=== PATIENT | female | born 2000 | race Caucasian/White ===

== ENCOUNTER 2023-05-20 04:22 | Emergency (ER) | payer MEDICAID, SELFPAY ==
[2023-05-20 04:28] VITALS: BP 163/116; PULSE 106; RESP 18; TEMP 36.8; O2SAT 100; BMI 41.9
[2023-05-20 04:55] LABS: Basophils # 0.1 10^3/uL (0.0-0.1); Basophils % 0.7 %; Eosinophils # 0.2 10^3/uL (0.0-0.8); Eosinophils % 1.9 %; Hematocrit 40.8 % (36-47); Lymphocytes # 3.6 10^3/uL (0.8-4.8); Lymphocytes % 29.4 %; Mean Corpuscular HGB Conc 31.9 g/dL (30-55); Mean Corpuscular Hemoglobin 27.4 pg (27-33); Mean Corpuscular Volume 85.9 fl (85-98); Monocytes # 0.5 10^3/uL (0.2-0.9); Monocytes % 4.4 %; Neutrophils # 7.75 10^3/uL (1.8-7.7); Neutrophils % 63.4 %; Nucleated Red Blood Cells % 0 %; Platelet Count 270 10^3/cmm (157-399); Red Blood Count 4.75 10^6/uL (3.85-5.65); Red Cell Distribution Width 14.8 % (12.1-15.1); White Blood Count 12.23 10^3/uL (3.29-11.43)
[2023-05-20 04:57] LABS: HCG Qualitative Urine. Negative (Negative)
[2023-05-20 05:03] LABS: Add Urine Culture? No; Add Urine Microscopic? YES; Bacteria Urine TRACE /hpf; Bilirubin Urine Neg (Negative); Blood Urine Trace (Negative); Glucose Urine UA Norm (Normal); Ketones Urine Negative (Negative); Leukocyte Esterase Urine Negative (Negative); Nitrate Urine Negative (Negative); Protein Urine Neg (Negative); RBC Urine 0-4 /hpf (0-2); Specific Gravity, Urine 1.005 (1.005-1.030); Squamous Epithelial Cell Urine 15-25 /hpf (0-5); Urine Appearance SL Hazy (CLEAR); Urine Color Colorless (Yellow); Urobilinogen Urine Neg (Negative); WBC Urine 0-4 /hpf (0-5); pH Urine 6.5 (5-7)
[2023-05-20 05:11] LABS: Alanine Aminotransferase 455 U/L (0-33); Albumin Level 4.3 g/dL (3.5-5.2); Alkaline Phosphatase 244 U/L (35-105); Anion Gap 17.8 (5-19); Aspartate Amino Transferase 242 U/L (0-32); Blood Urea Nitrogen 10 mg/dL (6-20); Calcium 9.4 mg/dL (8.5-10.5); Carbon Dioxide 21 mmol/L (22-29); Chloride 104 mmol/L (98-107); Creatinine Clr Calc Pharmacy 192.1339; Globulin 3.8 g/dL (1.3-4.6); Glucose 107 mg/dL (65-115); Osmolality Calculated 288 mOsm/kg (285-295); Potassium 3.8 mmol/L (3.5-5.1); Sodium 139 mmol/L (136-145); Total Bilirubin 0.4 mg/dL (0.15-1.2); Total Protein 8.1 g/dL (6.6-8.7)
--- NOTE | 2023-05-20 05:43 | ED_ITS ---
Documented by User: Samm Garcia MD 05/20/23 06:56 HPI - Back Pain/Injury 2 General: Chief Complaint: Back Pain/Injury Stated Complaint: ABD Rt Pain Back Pain Rt Time Seen by Provider: 05/20/23 04:32 History of Present Illness: 22-year-old female presents emergency de partment complaints of right upper back pain and right upper quadrant abdominal pain. She states it woke her from sleep this morning at approximately 1 AM. She states the pain was a sharp stabbing pain that radiated to her back. She states it was worse when she pushed on her right upper abdomen and also worse when she took a deep breath in. She does endorse associated nausea. She states this also happened 2 days ago and resolved on its own. She states she is unable to correlate eating or any other occurrences that could be causing her pain and discomfort. She states that on Thursday she did have significant acid reflux at that time she states she has never had acid reflux before. She denies shortness of breath dizziness or lightheaded feeling. She denies diarrhea or vomiting. Associated symptoms: Reports abdominal pain and nausea Review of Systems 2 General: Reports: 10 or more systems reviewed and unremarkable except in HPI and below GI: Reports: abdominal pain and nausea Musc: Reports: back pain [facility] ED 2 Female Reproductive History: Date of last menstrual period: 05/07/23 Physical Exam 2 Narrative: EXAM NARRATIVE: Constitutional: the patient appears well nourished and of normal development. Vital signs as documented. No acute distress at present. Alert and oriented-to person, place, time and situation. Head, eyes, ears, nose, mouth, throat: Normocephalic, atraumatic. Pupils-equal, round, reactive to light. No scleral icterus. Normal-appearing external ears. Normal appearing nasal turbinates, no drainage. No obvious oral lesions, posterior oropharynx without erythema or exudates. Neck: Supple, trachea is midline, no lymphadenopathy, no jugular venous distension, thyromegaly, or carotid bruits. Carotid upstrokes are brisk bilaterally. Lungs: clear to auscultation to all lung lang. Symmetrical rise and fall of chest, no obvious signs of increased work of breathing at present. Cardiac: Regular rate and rhythm, positive S1, S2. No murmurs, rubs or gallops that I can appreciate Abdomen: Soft, right upper quadrant tender to palpation, normal active bowel sounds to all quadrants. No palpable masses, no organomegaly and abdominal bruits. Extremities: 2+ pulses in the upper extremities that are equal bilaterally, 2+ pulses in the lower extremities that are equal bilaterally. Non-edematous. Moves all extremities well, sensation to all extremities are noted. Skin: Warm, dry, intact. Course 2 Vital Signs: Vital signs: Vital Signs Temperature 98.2 F 05/20/23 04:28 Pulse Rate 65 05/20/23 09:58 Respiratory Rate 18 05/20/23 04:28 Blood Pressure 138/96 05/20/23 09:58 Pulse Oximetry 98 05/20/23 09:58 Oxygen Delivery Me thod Room Air 05/20/23 06:27 MDM - Back Pain/Injury Medical Decision Making Physical exam completed document I did obtain a CBC and a CMP and she does have elevated white blood cells at 12.2, the CMP did demonstrate an AST of 242, ALT of 455, alkaline phosphatase 244 patient's total bilirubin is 0.4. Given the patient's physical exam findings I am concerned for acute cholecystitis. I did obtain a urinalysis that demonstrated trace blood. At present an ultrasound is pending of her right upper quadrant to evaluate for cholecystitis. Differential diagnosis includes acute cholecystitis, choledocholithiasis, fatty liver disease, UTI, gastroenteritis, I have discussed the patient's case with the on-coming physician <Dr. Jean-Baptiste > and they have assumed care of the patient. We have discussed the current lab/radiographic results that have been resulted and the pending tests. Medical Records I reviewed the patient's medical records. Labs I reviewed the patient's lab results. 05/20/23 04:41 05/20/23 04:41 Radiology Impressions Gallbladder Ultrasound 05/20/23 05:43 IMPRESSION: 1. Hyperechoic liver, which can be seen with fatty infiltration or hepatocellular disease. 2. Cholelithiasis without evidence of cholecystitis. Laboratory Results WBC 12.23 10^3/uL (3.29-11.43) H 05/20/23 04:41 RBC 4.75 10^6/uL (3.85-5.65) 05/20/23 04:41 Hgb 13.00 g/dL (11.27-16.99) 05/20/23 04:41 Hct 40.8 % (36-47) 05/20/23 04:41 MCV 85.9 fl (85-98) 05/20/23 04:41 MCH 27.4 pg (27-33) 05/20/23 04:41 MCHC 31.9 g/dL (30-55) 05/20/23 04:41 RDW 14.8 % (12.1-15.1) 05/20/23 04:41 Plt Count 270 10^3/cmm (157-399) 05/20/23 04:41 MPV 11.0 fL (7.4-10.4) H 05/20/23 04:41 Neut % (Auto) 63.4 % 05/20/23 04:41 Lymph % (Auto) 29.4 % 05/20/23 04:41 Sunflower % (Auto) 4.4 % 05/20/23 04:41 Eos % (Auto) 1.9 % 05/20/23 04:41 Baso % (Auto) 0.7 % 05/20/23 04:41 Neut # (Auto) 7.75 10^3/uL (1.8-7.7) H 05/20/23 04:41 Lymph # (Auto) 3.6 10^3/uL (0.8-4.8) 05/20/23 04:41 Sunflower # (Auto) 0.5 10^3/uL (0.2-0.9) 05/20/23 04:41 Eos # (Auto) 0.2 10^3/uL (0.0-0.8) 05/20/23 04:41 Baso # (Auto) 0.1 10^3/uL (0.0-0.1) 05/20/23 04:41 Nucleated RBC % (auto) 0 % 05/20/23 04:41 Nucleated RBCs # 0.0 /100WBC 05/20/23 04:41 Sodium 139 mmol/L (136-145) 05/20/23 04:41 Potassium 3.8 mmol/L (3.5-5.1) 05/20/23 04:41 Chloride 104 mmol/L (98-107) 05/20/23 04:41 Carbon Dioxide 21 mmol/L (22-29) L 05/20/23 04:41 Anion Gap 17.8 (5-19) 05/20/23 04:41 BUN 10 mg/dL (6-20) 05/20/23 04:41 Creatinine 0.6 mg/dL (0.5-0.9) 05/20/23 04:41 GFR Calculation 125.0 mL/min (90-130) 05/20/23 04:41 Glucose 107 mg/dL (65-115) 05/20/23 04:41 Calculated Osmolality 288 mOsm/kg (285-295) 05/20/23 04:41 Calcium 9.4 mg/dL (8.5-10.5) 05/20/23 04:41 Total Bilirubin 0.4 mg/dL (0.15-1.2) 05/20/23 04:41 AST 242 U/L (0-32) H 05/20/23 04:41 ALT 455 U/L (0-33) H 05/20/23 04:41 Alkaline Phosphatase 244 U/L (35-105) H 05/20/23 04:41 Total Protein 8.1 g/dL (6.6-8.7) 05/20/23 04:41 Albumin 4.3 g/dL (3.5-5.2) 05/20/23 04:41 Globulin 3.8 g/dL (1.3-4.6) 05/20/23 04:41 HCG, Qual Negative (Negative) 05/20/23 04:41 Urine Color Colorless (Yellow) 05/20/23 04:41 Urine Appearance Sl hazy (CLEAR) A 05/20/23 04:41 Urine pH 6.5 (5-7) 05/20/23 04:41 Ur Specific [place] 1.005 (1.005-1.030) 05/20/23 04:41 Urine Protein Neg (Negative) 05/20/23 04:41 Urine Glucose (UA) Norm (Normal) 05/20/23 04:41 Urine Ketones Negative (Negative) 05/20/23 04:41 Urine Blood Trace (Negative) H 05/20/23 04:41 Urine Nitrate Negative (Negative) 05/20/23 04:41 Urine Bilirubin Neg (Negative) 05/20/23 04:41 Urine Urobilinogen Neg mg/dL (Negative) 05/20/23 04:41 Ur Leukocyte Esterase Negative (Negative) 05/20/23 04:41 Urine RBC 0-4 /hpf (0-2) H 05/20/23 04:41 Urine WBC 0-4 /hpf (0-5) H 05/20/23 04:41 Ur Squamous Epith Cells 15-25 /hpf (0-5) H 05/20/23 04:41 Amorphous Sediment Not Reportable 05/20/23 04:41 Urine Bacteria Trace /hpf (NONE) 05/20/23 04:41 All radiology interpretation(s) finalized by discharge Discharge Plan Discharge Patient Disposition: Home Clinical Impression: Biliary colic, Cholelithiasis Condition: Stable Prescriptions: New hydrocodone-acetaminophen 5-325 mg tablet 1 tab PO Q6H PRN (Reason: pain) Qty: 20 0RF amoxicillin-pot clavulanate 875-125 mg tablet 1 tab PO BID Qty: 20 0RF promethazine 25 mg tablet 25 mg PO Q6H PRN (Reason: nausea and vomiting) Qty: 20 0RF No Action ibuprofen 200 mg Capsule 400 mg PO Q6H PRN (Reason: Pain) Discharge Orders: Discharge ED (Routine); Ordered 05/20/23 Ordered By: Quang Jean-Baptiste Referrals: Susan Winters DO [Primary Care Provider] - Patient Instructions: Biliary Colic (ED), Gallstones (ED), Abdominal Pain (ED), Opioid Safety, Pain Management Activity Restrictions/Additional Instructions: Thank you for choosing [facility] for your healthcare needs today. Please realize this is an emergency room and that we are providing you with a medical screening exam and this may not be complete and all inclusive of all the testing and or work up that you may need to determine your ailment or severity of your illness. It is very important that you follow up as instructed or that you return to the Emergency Department should you have concerns or if your condition changes or worsens in any way. You are seen today for abdominal pain. Your symptoms are caused by biliary colic. I reviewed your case with the on-call surgeon we recommend starting oral antibiotics, pain medications and nausea medications as needed. Case management will make arrangements for you to have follow-up with Dr. Cruz to discuss further treatment options. Sign Out Sign Out Data: Patient Sign Out occurred on 05/20/23 at 06:53. Patient's care was discussed, and care was transferred from Samm Garcia MD to Quang Jean-Baptiste DO. Coding Level of Care Code ED Power Sewing Machine Operator for Chg Fwd Documented by User: Quang Jean-Baptiste DO 05/20/23 11:43 HPI - Back Pain/Injury 2 General: Chief Complaint: Back Pain/Injury Stated Complaint: ABD Rt Pain Back Pain Rt Time Seen by Provider: 05/20/23 04:32 Course 2 Vital Signs: Vital signs: Vital Signs Temperature 98.2 F 05/20/23 04:28 Pulse Rate 65 05/20/23 09:58 Respiratory Rate 18 05/20/23 04:28 Blood Pressure 138/96 05/20/23 09:58 Pulse Oximetry 98 05/20/23 09:58 Oxygen Delivery Me thod Room Air 05/20/23 06:27 MDM - Back Pain/Injury Medical Decision Making Physical exam completed document I did obtain a CBC and a CMP and she does have elevated white blood cells at 12.2, the CMP did demonstrate an AST of 242, ALT of 455, alkaline phosphatase 244 patient's total bilirubin is 0.4. Given the patient's physical exam findings I am concerned for acute cholecystitis. I did obtain a urinalysis that demonstrated trace blood. At present an ultrasound is pending of her right upper quadrant to evaluate for cholecystitis. Differential diagnosis includes acute cholecystitis, choledocholithiasis, fatty liver disease, UTI, gastroenteritis, I have discussed the patient's case with the on-coming physician <Dr. Jean-Baptiste > and they have assumed care of the patient. We have discussed the current lab/radiographic results that have been resulted and the pending tests. Care assumed at change of shift the patient does not have sign of obstruction of laboratory test show marked elevation of alk phos and AST and ALT however T. bili is not elevated. Ultrasound gallbladder does not show radiographic findings of acute cholecystitis symptoms are better discussed with Dr. Cruz reviewed findings with the patient as well. Discussed treatment options to the patient and offered observation with IV hydration and pain control patient states she was feeling better after long discussion ultimately she decided to treat as an outpatient. Dr. Vazquez would recommend if she opted for that route started on Augmentin 875 twice daily I gave her antiemetics and pain medications reviewed diet adjustments she can make that can minimize recurrence of biliary colic. We will set her up to follow-up with Dr. Cruz in his office to pursue treatment options for definitive care Labs 05/20/23 04:41 05/20/23 04:41 Radiology Impressions Gallbladder Ultrasound 05/20/23 05:43 IMPRESSION: 1. Hyperechoic liver, which can be seen with fatty infiltration or hepatocellular disease. 2. Cholelithiasis without evidence of cholecystitis. Laboratory Results WBC 12.23 10^3/uL (3.29-11.43) H 05/20/23 04:41 RBC 4.75 10^6/uL (3.85-5.65) 05/20/23 04:41 Hgb 13.00 g/dL (11.27-16.99) 05/20/23 04:41 Hct 40.8 % (36-47) 05/20/23 04:41 MCV 85.9 fl (85-98) 05/20/23 04:41 MCH 27.4 pg (27-33) 05/20/23 04:41 MCHC 31.9 g/dL (30-55) 05/20/23 04:41 RDW 14.8 % (12.1-15.1) 05/20/23 04:41 Plt Count 270 10^3/cmm (157-399) 05/20/23 04:41 MPV 11.0 fL (7.4-10.4) H 05/20/23 04:41 Neut % (Auto) 63.4 % 05/20/23 04:41 Lymph % (Auto) 29.4 % 05/20/23 04:41 Sunflower % (Auto) 4.4 % 05/20/23 04:41 Eos % (Auto) 1.9 % 05/20/23 04:41 Baso % (Auto) 0.7 % 05/20/23 04:41 Neut # (Auto) 7.75 10^3/uL (1.8-7.7) H 05/20/23 04:41 Lymph # (Auto) 3.6 10^3/uL (0.8-4.8) 05/20/23 04:41 Sunflower # (Auto) 0.5 10^3/uL (0.2-0.9) 05/20/23 04:41 Eos # (Auto) 0.2 10^3/uL (0.0-0.8) 05/20/23 04:41 Baso # (Auto) 0.1 10^3/uL (0.0-0.1) 05/20/23 04:41 Nucleated RBC % (auto) 0 % 05/20/23 04:41 Nucleated RBCs # 0.0 /100WBC 05/20/23 04:41 Sodium 139 mmol/L (136-145) 05/20/23 04:41 Potassium 3.8 mmol/L (3.5-5.1) 05/20/23 04:41 Chloride 104 mmol/L (98-107) 05/20/23 04:41 Carbon Dioxide 21 mmol/L (22-29) L 05/20/23 04:41 Anion Gap 17.8 (5-19) 05/20/23 04:41 BUN 10 mg/dL (6-20) 05/20/23 04:41 Creatinine 0.6 mg/dL (0.5-0.9) 05/20/23 04:41 GFR Calculation 125.0 mL/min (90-130) 05/20/23 04:41 Glucose 107 mg/dL (65-115) 05/20/23 04:41 Calculated Osmolality 288 mOsm/kg (285-295) 05/20/23 04:41 Calcium 9.4 mg/dL (8.5-10.5) 05/20/23 04:41 Total Bilirubin 0.4 mg/dL (0.15-1.2) 05/20/23 04:41 AST 242 U/L (0-32) H 05/20/23 04:41 ALT 455 U/L (0-33) H 05/20/23 04:41 Alkaline Phosphatase 244 U/L (35-105) H 05/20/23 04:41 Total Protein 8.1 g/dL (6.6-8.7) 05/20/23 04:41 Albumin 4.3 g/dL (3.5-5.2) 05/20/23 04:41 Globulin 3.8 g/dL (1.3-4.6) 05/20/23 04:41 HCG, Qual Negative (Negative) 05/20/23 04:41 Urine Color Colorless (Yellow) 05/20/23 04:41 Urine Appearance Sl hazy (CLEAR) A 05/20/23 04:41 Urine pH 6.5 (5-7) 05/20/23 04:41 Ur Specific [place] 1.005 (1.005-1.030) 05/20/23 04:41 Urine Protein Neg (Negative) 05/20/23 04:41 Urine Glucose (UA) Norm (Normal) 05/20/23 04:41 Urine Ketones Negative (Negative) 05/20/23 04:41 Urine Blood Trace (Negative) H 05/20/23 04:41 Urine Nitrate Negative (Negative) 05/20/23 04:41 Urine Bilirubin Neg (Negative) 05/20/23 04:41 Urine Urobilinogen Neg mg/dL (Negative) 05/20/23 04:41 Ur Leukocyte Esterase Negative (Negative) 05/20/23 04:41 Urine RBC 0-4 /hpf (0-2) H 05/20/23 04:41 Urine WBC 0-4 /hpf (0-5) H 05/20/23 04:41 Ur Squamous Epith Cells 15-25 /hpf (0-5) H 05/20/23 04:41 Amorphous Sediment Not Reportable 05/20/23 04:41 Urine Bacteria Trace /hpf (NONE) 05/20/23 04:41 Discharge Plan Discharge Patient Disposition: Home Clinical Impression: Biliary colic, Cholelithiasis Condition: Stable Prescriptions: New hydrocodone-acetaminophen 5-325 mg tablet 1 tab PO Q6H PRN (Reason: pain) Qty: 20 0RF amoxicillin-pot clavulanate 875-125 mg tablet 1 tab PO BID Qty: 20 0RF promethazine 25 mg tablet 25 mg PO Q6H PRN (Reason: nausea and vomiting) Qty: 20 0RF No Action ibuprofen 200 mg Capsule 400 mg PO Q6H PRN (Reason: Pain) Discharge Orders: Discharge ED (Routine); Ordered 05/20/23 Ordered By: Quang Jean-Baptiste Referrals: Susan Winters DO [Primary Care Provider] - Patient Instructions: Biliary Colic (ED), Gallstones (ED), Abdominal Pain (ED), Opioid Safety, Pain Management Activity Restrictions/Additional Instructions: Thank you for choosing [facility] for your healthcare needs today. Please realize this is an emergency room and that we are providing you with a medical screening exam and this may not be complete and all inclusive of all the testing and or work up that you may need to determine your ailment or severity of your illness. It is very important that you follow up as instructed or that you return to the Emergency Department should you have concerns or if your condition changes or worsens in any way. You are seen today for abdominal pain. Your symptoms are caused by biliary colic. I reviewed your case with the on-call surgeon we recommend starting oral antibiotics, pain medications and nausea medications as needed. Case management will make arrangements for you to have follow-up with Dr. Cruz to discuss further treatment options. Sign Out Sign Out Data: Patient Sign Out occurred on 05/20/23 at 06:53. Patient's care was discussed, and care was transferred from Samm Garcia MD to Quang Jean-Baptiste DO. Coding Level of Care Code ED Power Sewing Machine Operator for Renaldo Yu
--- NOTE | 2023-05-20 05:43 | USR_ITS ---
PROCEDURE INFORMATION: Exam: US Abdomen, Limited; Right Upper Quadrant Exam date and time: 05/20/2023 5:59 AM Age: 22 years old Clinical indication: Abdominal pain; Acute; Additional info: Ruq abd pain TECHNIQUE: Imaging protocol: Real time ultrasound of the abdomen with image documentation. Limited exam focused on the right upper quadrant. COMPARISON: No relevant prior studies available. FINDINGS: Liver: Liver is diffusely increased in echogenicity, most commonly seen in hepatic steatosis, though other forms of parenchymal liver disease could have a similar appearance. This limits evaluation for subtle isoechoic masses but no masses are seen. Patent main portal vein with normal direction of flow. Gallbladder: Gallstones and sludge noted. No gallbladder wall thickening. No pericholecystic fluid. Negative sonographic Sheldon's sign. Biliary ducts: Normal. No stones. No dilation. Pancreas: Visualized pancreas is unremarkable. Right kidney: Normal. No mass. No hydronephrosis. US/US gall bladder [id number] IMPRESSION: 1. Hyperechoic liver, which can be seen with fatty infiltration or hepatocellular disease. 2. Cholelithiasis without evidence of cholecystitis.
[2023-05-20 06:27] VITALS: BP 152/88; PULSE 89; O2SAT 100
[2023-05-20 07:35] VITALS: PULSE 96; O2SAT 97
[2023-05-20 09:57] VITALS: BP 138/96; PULSE 65; O2SAT 98
[2023-05-20 09:58] VITALS: BP 138/96; PULSE 65; O2SAT 98
--- NOTE | 2023-05-21 23:22 | DCPLANNER ---
Message sent to General Surgery
== END 2023-05-20 10:05 | disposition home or self-care (01) ==
PROVIDERS: Internal Medicine; Emergency Provider Family Medicine; PCP Family Medicine
DX: K80.20 Calculus of gallbladder without cholecystitis without obstruction (principal)
CPT/HCPCS: 76705; 80053; 81001; 81025; 85025; 99284

== ENCOUNTER 2023-06-11 06:50 | Day surgery (SDC) | payer MEDICAID, SELFPAY ==
[2023-06-11] VITALS (11 sets, daily range): BP systolic 125–196; BP diastolic 72–135; PULSE 55–107; RESP 16–20; TEMP 36.1–36.4; O2SAT 94–99
--- NOTE | 2023-06-11 07:08 | W.PM.OPSUD ---
Surgery/Procedure H&P Update DATE OF PROCEDURE: June 11, 2023 DATE H&P PERFORMED: 06/01/23 H&P UPDATE INFORMATION: I have reviewed H&P completed within last 30 days, I have examined patient prior to procedure and No changes to prior documentation PLANNED PROCEDURE: Operation Date: 06/11/23 08:45 Proposed Procedures p Laparoscopic Cholecystectomy 96554, K80.20(Not Applicable) - Vinayak Cruz,
--- NOTE | 2023-06-11 07:28 | ANES.PREANE2 ---
Pre-Anesthetic Assessment Height/Weight: Height 1.68 m Weight 136.078 kg Temp Pulse Resp BP Pulse Ox O2 Del Method 97.3 F L 107 H 18 196/135 98 Room Air 06/11/23 07:09 06/11/23 07:09 06/11/23 07:09 06/11/23 07:09 06/11/23 07:09 06/11/23 07:09 Operation Date: 06/11/23 08:45 Proposed Procedures p Laparoscopic Cholecystectomy 23541, K80.20(Not Applicable) - Vinayak Cruz DO Last intake: Intake Last Liquid Date 06/10/23 Last Liquid Time 22:30 Last Solid Date 06/10/23 Last Solid Time 18:00 Social No alcohol and No tobacco Exam alert, oriented x 3, clear to auscultation bilaterally and regular rate & rhythm Airway Submandibular: within normal limits Cervical ROM: Other (Limited) Mallampati: Class II History/ROS No significant history except as noted Metabolic Morbid Obesity Anesthetic Plan ASA status: 3 Anesthesia: General Medications/Allergies Home Medications Medication Instructions Recorded Confirmed Last Taken Type hydrocodone 5 mg-acetaminophen 325 1 tab PO Q6H PRN pain #20 tabs 05/20/23 06/11/23 Unknown Rx mg tablet ibuprofen 200 mg capsule 400 mg PO Q6H PRN Pain 05/20/23 06/11/23 Unknown History promethazine 25 mg tablet 25 mg PO Q6H PRN nausea and 05/20/23 06/11/23 Unknown Rx vomiting #20 tabs Allergies Allergy/AdvReac Type Severity Reaction Status Date / Time No Known Allergies Allergy Verified 06/10/23 12:34 PFSH Anesthesia Female Reproductive History Date of last menstrual period: 05/07/23 Data Anesthesia Cardiac Studies: No Data to Display
[2023-06-11] MEDS: sodium chloride 0.9% 1,000 ML 30 ML IV (07:42)
[2023-06-11 07:45] LABS: OR HCG Qualitative Urine Negative (Negative)
[2023-06-11] MEDS: ceFAZolin 3,000 MG in sodium chloride 0.9% (plus) 100 ML 200 MG IV (08:09)
[2023-06-11] MEDS: lidocaine-epi 1% 20 mL INJ 10 ML INJECTION (08:48)
--- NOTE | 2023-06-11 09:17 | P.OP_ITS ---
Operative Report Date of procedure: June 11, 2023 Pre-op diagnosis: Symptomatic cholelithiasis Hepatocellular disease Post-op diagnosis: same Procedure done: Laparoscopic cholecystectomy Laparoscopic wedge liver biopsy Specimens removed/disposition: Gallbladder Wedge liver biopsy Surgeon: Vinayak Cruz DO Anesthesia: General and Local Estimated blood loss (mL): 5 Complications: None apparent Brief History: This very pleasant 22-year-old female who presented to the office with symptomatic cholelithiasis. Ultrasound also diagnosed hepatocellular disease. Laparoscopic cholecystectomy and laparoscopic wedge liver biopsy were indicated. The risk and benefits were explained and documented. Procedure: Patient was wheeled into the operative room and placed on the OR table in a supine position. Abdomen was inspected prepped and draped in usual sterile fashion. Time-out was performed and all present were in agreement. A 15 blade scalp was used to make a stab incision in the left upper quadrant and intra- abdominal insufflation was achieved using a Veress needle. After localizing the tissue incisions were made and a 5 millimeter trocar was placed into the umbilicus as well as 2 in the right upper quadrant. A 12 millimeter trocar was placed in the epigastrium. Gallbladder was grasped and elevated. The triangle of Calot was carefully dissected using blunt dissection and electrocautery until the triangle of Calot clearly identified. The cystic duct was clipped proximally and double clipped distally. The duct was then ligated proximally. The cystic artery was doubly clipped and ligated. The gallbladder was then removed from the liver bed using electrocautery. The gallbladder was removed f rom the abdomen using an Endo-Catch bag through the epigastric incision. The edge of the liver was then grasped with a [place] and Metzenbaum scissors were used to wedge out a wedge liver biopsy. The wedge liver biopsy was then placed into an Endo Catch bag and removed via the 12 mm trocar. The edge of the liver was then cauterized with electrocautery. The liver bed was inspected and no bleeding was seen. The abdomen was irrigated and suctioned. All ports removed. Skin was washed and dried. Incisions were closed with 4-0 Monocryl in a subcuticular interrupted fashion. Skin glue was applied. Patient tolerated the procedure well.
[2023-06-11] MEDS: ondansetron 2 mg/ML SDV 2 mL 4 MG IVP (09:36)
[2023-06-11] MEDS: diphenhydrAMINE 50 mg/mL SDV 1mL 12.5 MG IVP (10:02)
--- NOTE | 2023-06-11 11:10 | ANE.PACU2 ---
Inpatient post-anesthesia follow up: Vital signs: Temperature 97.6 F Pulse Rate 55 Respiratory Rate 16 Blood Pressure 125/85 Pulse Oximetry 94 Oxygen Delivery Me thod Room Air Oxygen Flow Rate 6 Fraction of Inspir ed Oxygen Hydration adequate: Yes Nausea and vomiting: No Pain level: 4 Mental status: Baseline
== END 2023-06-11 10:48 | disposition home or self-care (01) ==
PROVIDERS: Anesthesiology; PCP Family Medicine; Visit Provider Surgery
PROC: 0FT44ZZ Resection of Gallbladder, Percutaneous Endoscopic Approach (ICD-10-PCS; CPT 47562; principal; 2023-06-11 08:45)
PROC: 0FB04ZX Excision of Liver, Percutaneous Endoscopic Approach, Diagnostic (ICD-10-PCS; CPT 47379; 2023-06-11 08:45)
DX: K80.10 Calculus of gallbladder with chronic cholecystitis without obstruction (principal); K76.9 Liver disease, unspecified; E66.01 Morbid (severe) obesity due to excess calories; Z68.42 Body mass index [BMI] 45.0-49.9, adult
CPT/HCPCS: 47379; 47562; 81025; 88304; 88307; J0690; J1100; J1170; J1200; J2405; J2704; J2710; J3010; J3490; J7030

== ENCOUNTER 2023-06-12 16:32 | Emergency (ER) | payer MEDICAID, SELFPAY ==
[2023-06-12 16:37] VITALS: BP 139/90; PULSE 75; RESP 16; TEMP 36.6; O2SAT 98; BMI 53.2
--- NOTE | 2023-06-12 16:42 | ECG_ITS ---
Test Date: 2023-06-12 Pat Name: Sancho Andrade Department: Room: Gender: Female Glass Melt Operator: : [id number] Requested By: Quang Alcaraz Order Number: [id number] Krys MD: Jv Winston M.D. Measurements Intervals [place] Rate: 75 P: 34 WA: 156 QRS: 8 QRSD: 102 T: 0 QT: 379 QTc: 424 Interpretive Statements SINUS RHYTHM WITH SINUS ARRHYTHMIA MODERATE VOLTAGE CRITERIA FOR LVH, CONSIDER NORMAL VARIANT [MEETS CRITERIA IN ONE OF: R(aVL), S(V1), R(V5), R(V5/V6)+S(V1)] NONSPECIFIC T-WAVE ABNORMALITY No previous ECG available for comparison Electronically Signed On 06-14-2023 12:38:58 CDT by Jv Winston M.D. [id number] f
--- NOTE | 2023-06-12 17:04 | XRR_ITS ---
PROCEDURE INFORMATION: Exam: XR Abdomen Exam date and time: 06/12/2023 6:02 PM Age: 22 years old Clinical indication: Abdominal pain; Patient HX: Gallbladder removed yesterday; Additional info: Post op abd pain TECHNIQUE: Imaging protocol: Radiologic exam of the abdomen. Views: 2 Views. Upright and supine views. COMPARISON: US gall bladder [id number] 05/20/2023 5:59 AM FINDINGS: Gastrointestinal tract: Moderate gas distension of the transverse colon and splenic flexure without obvious wall thickening. Moderate colonic stool retention. No obvious pneumatosis or bowel wall thickening or small bowel dilatation. Intraperitoneal space: Trace subdiaphragmatic air likely expected due to recent reported cholecystectomy. Cholecystectomy clips present. Bones/joints: Unremarkable for age. XR/XR acute abdomen series [id number] IMPRESSION: 1. Moderate gas distension of the colon suggestive of ileus. Moderate colonic stool retention. 2. Trace free intraperitoneal air as expected given recent surgery.
[2023-06-12 17:14] VITALS: RESP 15; O2SAT 98
[2023-06-12] MEDS: morphine 4 mg/mL SDV 1 mL IVP (17:14)
[2023-06-12] MEDS: ondansetron 2 mg/ML SDV 2 mL 4 MG IVP (17:14)
--- NOTE | 2023-06-12 17:14 | ED_ITS ---
HPI - Chest Pain 2 General: Chief Complaint: Chest Pain Stated Complaint: chest and abd pain post surgery Time Seen by Provider: 06/12/23 17:04 Source: patient Mode of arrival: ambulatory History of Present Illness: 22-year-old female presents emergency ro om with complaint of chest pain. She is postop day 1 status post laparoscopic cholecystectomy with liver biopsy. She is complaining of upper abdominal pain radiating to her chest and into her shoulder blades. She had some nausea and vomiting associated with this as well no known history of coronary artery disease no hematemesis or coffee-ground emesis. MD complaint: chest pain Timing of current episode: episodic Prior episodes: Yes Onset: during rest Pain location: epigastric Pain radiation: back and neck Severity: severe Quality: sharp Relieving factors: nothing Exacerbating factors: nothing Associated symptoms: Reports nausea and vomiting; Deny abdominal pain, diaphoresis, dyspnea, fever(s), leg edema, palpitations, sense of impending doom or syncope Treatment prior to arrival: none Review of Systems 2 Const: Denies: fever(s), chills or diaphoresis Card: Denies: chest pain, palpitations or syncope Resp: Denies: dyspnea GI: Reports: nausea and vomiting; Denies: abdominal pain : Denies: dysuria, urinary frequency or urinary urgency Musc: Denies: neck pain or back pain Skin/Breast: Denies: rash Physical Exam 2 Const: GENERAL APPEARANCE: cooperative and comfortable O RIENTATION/CONSCIOUSNESS: Yes awake, Yes oriented to person, Yes oriented to place and Yes oriented to time HENMT: COMMON NORMALS: normocephalic, atraumatic and hearing grossly normal bilaterally HEAD & SCALP: normocephalic and atraumatic Resp: COMMON NORMALS: normal respiratory effort, No retractions, No use of accessory muscles and clear to auscultation bilaterally AUSCULTATION: clear to auscultation bilaterally Cardio: COMMON NORMALS: regular rate, regular rhythm and No murmurs present (Cardio) RATE: regular rate RHYTHM: regular rhythm GI: COMMON NORMALS: No hepatosplenomegaly present AUSCULTATION: Yes normoactive bowel sounds PALPATION: Yes Tenderness to palpation present (GI) (Mild diffuse tenderness), No Guarding due to palpation present (GI) and Yes No hepatosplenomegaly present OTHER: Bowel sounds positive no acute abdomen on exam or on repeat exam Extremity: COMMON NORMALS: normal to inspection, capillary refill normal, no clubbing, cyanosis or edema, no calf tenderness and no pedal edema Neuro: SENSORIUM/ORIENTATION: Yes oriented to person, Yes oriented to place and Yes oriented to time Skin: COMMON NORMALS: no rashes or lesions noted GENERAL SKIN EXAM: no rashes or lesions noted Course 2 Vital Signs: Vital signs: Vital Signs Temperature 97.9 F 06/12/23 16:37 Pulse Rate 75 06/12/23 16:37 Respiratory Rate 15 06/12/23 17:14 Blood Pressure 139/90 06/12/23 16:37 Pulse Oximetry 98 06/12/23 17:14 Oxygen Delivery Me thod Room Air 06/12/23 16:37 MDM - Chest Pain Medical Decision Making Small amount of air underneath the diaphragm on the right side. Suspect this is due to her surgery yesterday. She does not have an acute abdomen there is only mild leukocytosis. Liver enzymes elevated bilirubin is normal given her biopsy yesterday this is not unexpected. Repeat abdominal exam benign. Will discharge patient home continue pain medications given promethazine to use as needed clear liquid diet follow-up as needed. if has any worsening or change symptoms return to the emergency room or follow-up with her surgeon. Medical Records I reviewed the patient's medical records. Lab Data I reviewed the patient's lab results. 06/12/23 17:20 06/12/23 17:20 Laboratory Results WBC 14.72 10^3/uL (3.29-11.43) H 06/12/23 17:20 RBC 4.71 10^6/uL (3.85-5.65) 06/12/23 17:20 Hgb 13.20 g/dL (11.27-16.99) 06/12/23 17:20 Hct 40.7 % (36-47) 06/12/23 17:20 MCV 86.4 fl (85-98) 06/12/23 17:20 MCH 28.0 pg (27-33) 06/12/23 17:20 MCHC 32.4 g/dL (30-55) 06/12/23 17:20 RDW 14.6 % (12.1-15.1) 06/12/23 17:20 Plt Count 257 10^3/cmm (157-399) 06/12/23 17:20 MPV 11.3 fL (7.4-10.4) H 06/12/23 17:20 Neut % (Auto) 74.4 % 06/12/23 17:20 Lymph % (Auto) 17.7 % 06/12/23 17:20 Pierce % (Auto) 6.6 % 06/12/23 17:20 Eos % (Auto) 0.4 % 06/12/23 17:20 Baso % (Auto) 0.6 % 06/12/23 17:20 Neut # (Auto) 10.95 10^3/uL (1.8-7.7) H 06/12/23 17:20 Lymph # (Auto) 2.6 10^3/uL (0.8-4.8) 06/12/23 17:20 Pierce # (Auto) 1.0 10^3/uL (0.2-0.9) H 06/12/23 17:20 Eos # (Auto) 0.1 10^3/uL (0.0-0.8) 06/12/23 17:20 Baso # (Auto) 0.1 10^3/uL (0.0-0.1) 06/12/23 17:20 Nucleated RBC % (auto) 0 % 06/12/23 17:20 Nucleated RBCs # 0.0 /100WBC 06/12/23 17:20 Sodium 142 mmol/L (136-145) 06/12/23 17:20 Potassium 3.5 mmol/L (3.5-5.1) 06/12/23 17:20 Chloride 103 mmol/L (98-107) 06/12/23 17:20 Carbon Dioxide 29 mmol/L (22-29) 06/12/23 17:20 Anion Gap 13.5 (5-19) 06/12/23 17:20 BUN 8 mg/dL (6-20) 06/12/23 17:20 Creatinine 0.7 mg/dL (0.5-0.9) 06/12/23 17:20 GFR Calculation 104.6 mL/min (90-130) 06/12/23 17:20 Glucose 122 mg/dL (65-115) H 06/12/23 17:20 Calculated Osmolality 294 mOsm/kg (285-295) 06/12/23 17:20 Calcium 8.9 mg/dL (8.5-10.5) 06/12/23 17:20 Total Bilirubin 0.9 mg/dL (0.15-1.2) 06/12/23 17:20 AST 574 U/L (0-32) H 06/12/23 17:20 ALT 678 U/L (0-33) H 06/12/23 17:20 Alkaline Phosphatase 203 U/L (35-105) H 06/12/23 17:20 Total Protein 7.9 g/dL (6.6-8.7) 06/12/23 17:20 Albumin 4.2 g/dL (3.5-5.2) 06/12/23 17:20 Globulin 3.7 g/dL (1.3-4.6) 06/12/23 17:20 All radiology interpretation(s) finalized by discharge Discharge Plan Discharge Patient Disposition: Home Clinical Impression: Postoperative abdominal pain Condition: Stable Prescriptions: New promethazine 25 mg tablet 25 mg PO Q6H PRN (Reason: nausea and vomiting) Qty: 20 0RF No Action ibuprofen 200 mg Capsule 400 mg PO Q6H PRN (Reason: Pain) Hold Instructions: Resume on 06/13/23. hydrocodone-acetaminophen 5-325 mg tablet 1 tab PO Q6H PRN (Reason: pain) Qty: 20 0RF Hold Instructions: Resume on 06/16/23. promethazine 25 mg tablet 25 mg PO Q6H PRN (Reason: nausea and vomiting) Qty: 20 0RF Colace 100 mg capsule 100 mg PO BID Qty: 14 0RF hydrocodone-acetaminophen 7.5-325 mg tablet 1 tab PO Q6H PRN (Reason: pain) Qty: 20 0RF Discharge Orders: Discharge ED (Routine); Ordered 06/12/23 Ordered By: Quang Jean-Baptiste Referrals: Susan Winters, [Primary Care Provider] - Patient Instructions: Abdominal Pain (ED), Opioid Safety, Pain Management Activity Restrictions/Additional Instructions: Thank you for choosing [facility] for your healthcare needs today. Please realize this is an emergency room and that we are providing you with a medical screening exam and this may not be complete and all inclusive of all the testing and or work up that you may need to determine your ailment or severity of your illness. It is very important that you follow up as instructed or that you return to the Emergency Department should you have concerns or if your condition changes or worsens in any way. You were seen today for abdominal pain after your laparoscopic cholecystectomy. The pain is likely caused by air that is accumulated from the procedure underneath your diaphragm. This does happen sometimes and can cause pretty significant pain usual pain medications regularly. Also gave you another prescription for meds for nausea and vomiting. Clear liquid diet today and tomorrow then advance as tolerated. Coding Level of Care Code ED Parole Board Member for Renaldo Yu
[2023-06-12] MEDS: sodium chloride 0.9% 1,000 ML 999 ML IV (17:17)
[2023-06-12 17:29] LABS: Basophils # 0.1 10^3/uL (0.0-0.1); Basophils % 0.6 %; Eosinophils # 0.1 10^3/uL (0.0-0.8); Eosinophils % 0.4 %; Hematocrit 40.7 % (36-47); Lymphocytes # 2.6 10^3/uL (0.8-4.8); Lymphocytes % 17.7 %; Mean Corpuscular HGB Conc 32.4 g/dL (30-55); Mean Corpuscular Volume 86.4 fl (85-98); Mean Platelet Volume 11.3 fL (7.4-10.4); Monocytes % 6.6 %; Neutrophils # 10.95 10^3/uL (1.8-7.7); Neutrophils % 74.4 %; Nucleated Red Blood Cells % 0 %; Platelet Count 257 10^3/cmm (157-399); Red Blood Count 4.71 10^6/uL (3.85-5.65); Red Cell Distribution Width 14.6 % (12.1-15.1); White Blood Count 14.72 10^3/uL (3.29-11.43)
[2023-06-12 17:48] LABS: Alanine Aminotransferase 678 U/L (0-33); Albumin Level 4.2 g/dL (3.5-5.2); Alkaline Phosphatase 203 U/L (35-105); Aspartate Amino Transferase 574 U/L (0-32); Blood Urea Nitrogen 8 mg/dL (6-20); Calcium 8.9 mg/dL (8.5-10.5); Carbon Dioxide 29 mmol/L (22-29); Chloride 103 mmol/L (98-107); Globulin 3.7 g/dL (1.3-4.6); Glomerular Filtration Rate 104.6 mL/min (90-130); Glucose 122 mg/dL (65-115); Osmolality Calculated 294 mOsm/kg (285-295); Sodium 142 mmol/L (136-145); Total Bilirubin 0.9 mg/dL (0.15-1.2); Total Protein 7.9 g/dL (6.6-8.7)
[2023-06-12 17:55] LABS: Anion Gap 13.5 (5-19); Potassium 3.5 mmol/L (3.5-5.1)
== END 2023-06-12 18:45 | disposition home or self-care (01) ==
PROVIDERS: Emergency Provider Family Medicine; PCP Family Medicine
DX: G89.18 Other acute postprocedural pain (principal); R10.10 Upper abdominal pain, unspecified
CPT/HCPCS: 74022; 80053; 85025; 93005; 96374; 96375; 99285; J2270; J2405; J7030